=== PATIENT | female | born 1940 | race Caucasian/White ===

== ENCOUNTER → 2020-03-18 13:49 | Outpatient (CLI) | payer MEDICARE, OTHER, SELFPAY ==
[2020-03-18 15:56] LABS: COVID19 -Nasal RAPID Negative (Negative)
== END ==
PROVIDERS: PCP Family Medicine; Visit Provider Physician Assistant
DX: Z11.59 Encounter for screening for other viral diseases (principal)
CPT/HCPCS: 87635

== ENCOUNTER 2020-03-19 08:39 | Day surgery (SDC) | payer MEDICARE, OTHER, SELFPAY ==
[2020-03-19] MEDS: PROPARACAINE 0.5% OPHTH SOL 2 DROPS EYE-OP (09:35)
[2020-03-19] MEDS: CATARACT EYE COMPOUND (10 DROPS/SYRINGE) 3 DROPS EYE-OP (09:43)
[2020-03-19 09:46] VITALS: BP 158/77; PULSE 77; RESP 16; TEMP 37.2; O2SAT 99; BMI 43.4
--- NOTE | 2020-03-19 10:33 | PM.PREOP ---
Pre-operative Note Interval Note History & Physical reviewed/Exam performed by Physician: Yes Changes to H&P: No
--- NOTE | 2020-03-19 10:33 | PM.OP.1 ---
Operative Date/Time/Diagnoses Pre-op diagnosis: Nuclear cataract right eye Procedure & Clinicians Procedure: Cataract Surgery Same procedure as scheduled: Yes Surgeon: Erickson Lubin Anesthesia Type: MAC +/- and Sedation Operative Notes Procedure in detail: Patient brought to the operating suite. Tetracaine drops placed in the right eye. Marking instrument was used to nelson vertical and horizontal meridians. Patient was prepped and draped in sterile manner. Wire lid speculum was placed in the eye. Marking instrument was used to nelson 165 degree meridian. Betadine drops were placed on the eye. This was irrigated. Lidocaine jelly was placed on the eye. A paracentesis port was created with a side-port blade. 0.1 mL 1% preservative free lidocaine was injected into the anterior chamber. The anterior chamber was deepened with viscoelastic. 2.6 mm keratome was used to create a temporal clear corneal incision. Cystotome and Utrata forceps were used to create continuous tear capsulorrhexis. Balanced salt solution was used to hydro dissect the nucleus. The phacoemulsification handpiece was inserted and the nucleus was removed using the stop and chop technique. The irrigation aspiration handpiece was inserted and the remaining cortex was removed. Anterior chamber was deepened with viscoelastic. An Mcallister [id number] intraocular lens with a power of 19.0 was injected into the capsular bag. Irrigation aspiration handpiece was inserted and the remaining viscoelastic was removed. The lens was rotated to the 165 degree meridian. Incision was hydrated with balanced salt solution and found to be leak free with pressure with Weck-Kemi sponges. 0.1 mL Vigamox injected anterior chamber. 0.3 mL Kenalog 10 mg was injected subconjunctivally. Lid speculum was removed. The patient left the operating room in excellent condition. Complications: none Post-operative Condition: stable Disposition: same day surgery
[2020-03-19] MEDS: TRIAMCINOLONE 50 MG/5 ML VIAL INJ (10:56)
[2020-03-19] MEDS: PHENYLEPHRINE/LIDOCAINE VIAL (OR) 0.2 ML EYE-OP (10:56)
[2020-03-19] MEDS: BALANCED SALT IRRIG SOLN NO.2 500 ML, EPINEPHrine 1 MG IRR (10:57)
[2020-03-19] MEDS: LIDOCAINE JELLY 2% 5 ML 1 APPLIC TOP (10:57)
[2020-03-19] MEDS: TETRACAINE 0.5% OPHTH DROPS 4 ML 2 DROPS EYE-OP (10:57)
[2020-03-19] MEDS: MOXIFLOXACIN INJ 5 MG/ML VIAL EYE-OP (10:57)
[2020-03-19] MEDS: CHONDROIDTIN/SOD HYALURONATE 1.05 ML SYRINGE INTRAOCULA (10:58)
[2020-03-19 11:11] VITALS: BP 163/81; PULSE 65; RESP 14; TEMP 36.6; O2SAT 97
[2020-03-19 11:19] VITALS: BP 154/83; PULSE 64; RESP 16; O2SAT 97
--- NOTE | 2020-03-19 11:36 | SUR.PHASEII ---
1125 alert, oriented, head tremor. Stable and comfortable.
== END 2020-03-19 11:28 | disposition home or self-care (01) ==
PROVIDERS: PCP Family Medicine; Referring Provider Ophthalmology; Visit Provider Ophthalmology
PROC: (CPT 66984; principal; 2020-03-19 10:45)
DX: H25.11 Age-related nuclear cataract, right eye (principal); I48.91 Unspecified atrial fibrillation; I10 Essential (primary) hypertension; F32.9 Major depressive disorder, single episode, unspecified; F41.9 Anxiety disorder, unspecified; R25.1 Tremor, unspecified
CPT/HCPCS: 66984; J0171; J2250; J3010; J3301; V2787

== ENCOUNTER → 2020-03-30 11:03 | Outpatient (CLI) | payer MEDICARE, OTHER, SELFPAY ==
[2020-03-30 12:29] LABS: COVID19 -Nasal RAPID Negative (Negative)
== END ==
PROVIDERS: PCP Family Medicine; Visit Provider Nurse Practitioner
DX: Z11.59 Encounter for screening for other viral diseases (principal)
CPT/HCPCS: 87635

== ENCOUNTER 2020-04-02 09:04 | Day surgery (SDC) | payer MEDICARE, OTHER, SELFPAY ==
[2020-04-02] MEDS: PROPARACAINE 0.5% OPHTH SOL 2 DROPS EYE-OP (09:27)
[2020-04-02] MEDS: CATARACT EYE COMPOUND (10 DROPS/SYRINGE) 3 DROPS EYE-OP (09:30)
[2020-04-02 09:31] VITALS: BP 150/82; PULSE 64; RESP 16; TEMP 36.4; O2SAT 100
[2020-04-02 09:42] VITALS: BMI 42.9
--- NOTE | 2020-04-02 10:29 | PM.PREOP ---
Pre-operative Note Interval Note History & Physical reviewed/Exam performed by Physician: Yes Changes to H&P: No
--- NOTE | 2020-04-02 10:29 | PM.OP.1 ---
Operative Date/Time/Diagnoses Pre-op diagnosis: Nuclear Cataract Left eye Post-op diagnosis: same Procedure & Clinicians Same procedure as scheduled: Yes Surgeon: Erickson Lubin Anesthesia Type: MAC +/- and Sedation Operative Notes Procedure in detail: Patient brought to the operating suite. Tetracaine drops placed in the left eye. The marking instrument was used to nelson the vertical and horizontal meridians. Patient was prepped and draped in sterile manner. Wire lid speculum was placed in the eye. marking instrument was used to nelson the 15 degree meridian. Betadine drops were placed on the eye. This was irrigated. Lidocaine jelly was placed on the eye. A paracentesis port was created with a side-port blade. 0.1 mL 1% preservative free lidocaine was injected into the anterior chamber. The anterior chamber was deepened with viscoelastic. 2.6 mm keratome was used to create a temporal clear corneal incision. Cystotome and Utrata forceps were used to create continuous tear capsulorrhexis. Balanced salt solution was used to hydro dissect the nucleus. The phacoemulsification handpiece was inserted and the nucleus was removed using the stop and chop technique. The irrigation aspiration handpiece was inserted and the remaining cortex was removed. Anterior chamber was deepened with viscoelastic. An Mcallister [id number] intraocular lens with a power of 18.5 was injected into the capsular bag. Irrigation aspiration handpiece was inserted and the remaining viscoelastic was removed. The lens was rotated to the 15 degree meridian. Incision was hydrated with balanced salt solution and found to be leak free with pressure with Weck-Kemi sponges. 0.1 mL Vigamox injected anterior chamber. 0.3 mL Kenalog 10 mg was injected subconjunctivally. Lid speculum was removed. The patient left the operating room in excellent condition. Complications: none Post-operative Condition: stable Disposition: same day surgery
[2020-04-02] MEDS: CHONDROIDTIN/SOD HYALURONATE 1.05 ML SYRINGE INTRAOCULA (10:51)
[2020-04-02] MEDS: MOXIFLOXACIN INJ 5 MG/ML VIAL EYE-OP (10:51)
[2020-04-02] MEDS: TRIAMCINOLONE 50 MG/5 ML VIAL INJ (10:51)
[2020-04-02] MEDS: PHENYLEPHRINE/LIDOCAINE VIAL (OR) 0.2 ML EYE-OP (10:51)
[2020-04-02] MEDS: TETRACAINE 0.5% OPHTH DROPS 4 ML 2 DROPS EYE-OP (10:52)
[2020-04-02] MEDS: BALANCED SALT IRRIG SOLN NO.2 500 ML, EPINEPHrine 1 MG IRR (10:52)
[2020-04-02] MEDS: LIDOCAINE JELLY 2% 5 ML 1 APPLIC TOP (10:52)
[2020-04-02 11:05] VITALS: BP 154/80; PULSE 61; RESP 17; TEMP 36.1; O2SAT 97
== END 2020-04-02 11:20 | disposition home or self-care (01) ==
PROVIDERS: PCP Family Medicine; Referring Provider Ophthalmology; Visit Provider Ophthalmology
PROC: (CPT 66984; principal; 2020-04-02 10:45)
DX: H25.12 Age-related nuclear cataract, left eye (principal); I48.91 Unspecified atrial fibrillation; I10 Essential (primary) hypertension; F32.9 Major depressive disorder, single episode, unspecified; F41.9 Anxiety disorder, unspecified
CPT/HCPCS: 66984; J0171; J2250; J3010; J3301; V2787

== ENCOUNTER → 2021-03-11 08:27 | Outpatient (CLI) | payer MEDICARE, OTHER, SELFPAY ==
[2021-03-11 18:44] LABS: Add Manual Diff / Slide Review NO; Basophils Absolute Auto 100 /uL (0-100); Basophils Percent Auto 0.9 % (0-2); Eosinophils Absolute Auto 300 /uL (0-450); Eosinophils Percent Auto 4.3 % (2-4); Hemoglobin 14.2 g/dL (12.0-16.0); Lymphocytes Absolute Auto 1900 /uL (1100-4500); Lymphocytes Percent Auto 24.7 % (25-40); Mean Corpuscular HGB Conc 34.7 % (30-36); Mean Corpuscular Hemoglobin 29.3 PG (26-34); Mean Corpuscular Volume 84.2 fL (80-100); Monocytes Absolute Auto 900 /uL (0-900); Monocytes Percent Auto 11.6 % (3-14); Neutrophils Absolute Auto 4400 /uL (1500-7000); Neutrophils Percent Auto 58.5 % (50-75); Platelet Count 322 X10^3/uL (150-400); Red Blood Cell Count 4.87 X10^6/uL (4.0-5.2); Red Cell Distribution Width 13.1 % (11.6-14.8); White Blood Cell Count 7.6 X10^3/uL (4.5-11.0)
[2021-03-11 18:50] LABS: Alanine Aminotransferase 23 IU/L (<35); Albumin 3.7 g/dL (3.5-5.0); Albumin Globulin Ratio 1.4 (1.0-2.8); Alkaline Phosphatase 70 U/L (38-126); Aspartate Aminotransferase 30 IU/L (14-36); BUN Creatinine Ratio 20.9 (6-22); Bilirubin Total 0.6 mg/dL (0.2-1.3); Blood Urea Nitrogen 19 mg/dL (7-17); Calcium 10.2 mg/dL (8.4-10.2); Chloride 96 mmol/L (98-107); Estimated Glomerular Filt Rate 59.6 mL/min (>60); Globulin 2.7 g/dL (1.7-4.1); Glucose 107 mg/dL (80-110); HEMOLYSIS < 15 (0-50); Sodium 139 mmol/L (137-145); Total Protein 6.4 g/dL (6.3-8.2)
[2021-03-11 18:53] LABS: Cholesterol 179 mg/dL (140-199); HDL Cholesterol 49 mg/dL (40-60); LDL Cholesterol Calculated 109 mg/dL (<100); Triglycerides 106 mg/dL (35-150)
[2021-03-11 19:02] LABS: Carbon Dioxide 39 mmol/L (22-32)
== END ==
PROVIDERS: PCP Physician Assistant; Referring Provider Physician Assistant; Visit Provider Physician Assistant
DX: I10 Essential (primary) hypertension (principal); E78.00 Pure hypercholesterolemia, unspecified; Z87.898 Personal history of other specified conditions
CPT/HCPCS: 80053; 80061; 85025

== ENCOUNTER → 2021-04-02 08:22 | Outpatient (CLI) | payer MEDICARE, OTHER, SELFPAY ==
[2021-04-02 19:33] LABS: Alanine Aminotransferase 23 IU/L (<35); Albumin 3.7 g/dL (3.5-5.0); Albumin Globulin Ratio 1.3 (1.0-2.8); Alkaline Phosphatase 65 U/L (38-126); Aspartate Aminotransferase 30 IU/L (14-36); BUN Creatinine Ratio 18.7 (6-22); Bilirubin Total 0.6 mg/dL (0.2-1.3); Blood Urea Nitrogen 17 mg/dL (7-17); Calcium 10.5 mg/dL (8.4-10.2); Chloride 96 mmol/L (98-107); Estimated Glomerular Filt Rate 59.6 mL/min (>60); Globulin 2.8 g/dL (1.7-4.1); Glucose 108 mg/dL (80-110); HEMOLYSIS < 15 (0-50); Potassium 3.2 mmol/L (3.4-5.1); Sodium 141 mmol/L (137-145); Total Protein 6.5 g/dL (6.3-8.2)
[2021-04-02 19:39] LABS: Carbon Dioxide 37 mmol/L (22-32)
== END ==
PROVIDERS: PCP Physician Assistant; Visit Provider Physician Assistant
DX: E87.8 Other disorders of electrolyte and fluid balance, not elsewhere classified (principal)
CPT/HCPCS: 80053

== ENCOUNTER → 2021-07-23 12:38 | Outpatient (CLI) | payer MEDICARE, OTHER, SELFPAY ==
[2021-07-24 18:50] LABS: Add Manual Diff / Slide Review NO; Basophils Absolute Auto 100 /uL (0-100); Basophils Percent Auto 1.3 % (0-2); Eosinophils Absolute Auto 400 /uL (0-450); Eosinophils Percent Auto 5.3 % (2-4); Hematocrit 42.5 % (36-46); Hemoglobin 14.4 g/dL (12.0-16.0); Lymphocytes Absolute Auto 1600 /uL (1100-4500); Lymphocytes Percent Auto 23.8 % (25-40); Mean Corpuscular HGB Conc 33.8 % (30-36); Mean Corpuscular Hemoglobin 28.6 PG (26-34); Mean Corpuscular Volume 84.7 fL (80-100); Monocytes Absolute Auto 700 /uL (0-900); Monocytes Percent Auto 10.5 % (3-14); Neutrophils Absolute Auto 4000 /uL (1500-7000); Neutrophils Percent Auto 59.1 % (50-75); Platelet Count 319 X10^3/uL (150-400); Red Blood Cell Count 5.03 X10^6/uL (4.0-5.2); Red Cell Distribution Width 13.9 % (11.6-14.8); White Blood Cell Count 6.8 X10^3/uL (4.5-11.0)
[2021-07-24 19:02] LABS: Alanine Aminotransferase 28 IU/L (<35); Albumin 3.9 g/dL (3.5-5.0); Albumin Globulin Ratio 1.3 (1.0-2.8); Alkaline Phosphatase 43 U/L (38-126); Aspartate Aminotransferase 46 IU/L (14-36); BUN Creatinine Ratio 25.3 (6-22); Bilirubin Total 0.7 mg/dL (0.2-1.3); Blood Urea Nitrogen 22 mg/dL (7-17); Calcium 9.6 mg/dL (8.4-10.2); Carbon Dioxide 32 mmol/L (22-32); Chloride 99 mmol/L (98-107); Estimated Glomerular Filt Rate > 60.0 mL/min (>60); Globulin 2.9 g/dL (1.7-4.1); Glucose 121 mg/dL (80-110); HEMOLYSIS 107 (0-50); Sodium 139 mmol/L (137-145); Total Protein 6.8 g/dL (6.3-8.2)
[2021-07-24 19:03] LABS: Potassium 3.8 mmol/L (3.4-5.1)
== END ==
PROVIDERS: PCP Physician Assistant; Visit Provider Physician Assistant
DX: Z79.899 Other long term (current) drug therapy (principal); E87.8 Other disorders of electrolyte and fluid balance, not elsewhere classified; Z87.898 Personal history of other specified conditions
CPT/HCPCS: 80053; 85025

== ENCOUNTER → 2022-02-03 11:39 | Outpatient (CLI) | payer MEDICARE, OTHER, SELFPAY ==
[2022-02-03 20:25] LABS: Add Manual Diff / Slide Review NO; Basophils Absolute Auto 100 /uL (0-100); Basophils Percent Auto 0.9 % (0-2); Eosinophils Absolute Auto 200 /uL (0-450); Hematocrit 42.2 % (36-46); Hemoglobin 14.5 g/dL (12.0-16.0); Lymphocytes Absolute Auto 1400 /uL (1100-4500); Lymphocytes Percent Auto 22.6 % (25-40); Mean Corpuscular HGB Conc 34.3 % (30-36); Mean Corpuscular Hemoglobin 28.9 PG (26-34); Mean Corpuscular Volume 84.4 fL (80-100); Monocytes Absolute Auto 700 /uL (0-900); Monocytes Percent Auto 11.5 % (3-14); Neutrophils Absolute Auto 3800 /uL (1500-7000); Platelet Count 332 X10^3/uL (150-400); Red Cell Distribution Width 13.4 % (11.6-14.8); White Blood Cell Count 6.3 X10^3/uL (4.5-11.0)
[2022-02-03 21:15] LABS: Vitamin D 25 Hydroxy (D3) 33.1 ng/mL (30.0-100.0)
[2022-02-03 21:31] LABS: TSH w/ Reflex to FT4 1.45 uIU/mL (0.47-4.68)
[2022-02-04 02:16] LABS: HEMOLYSIS < 15 (0-50)
[2022-02-04 02:22] LABS: Alanine Aminotransferase 22 IU/L (<35); Albumin 3.7 g/dL (3.5-5.0); Albumin Globulin Ratio 1.3 (1.0-2.8); Alkaline Phosphatase 70 U/L (38-126); Aspartate Aminotransferase 29 IU/L (14-36); Bilirubin Total 0.6 mg/dL (0.2-1.3); Blood Urea Nitrogen 19 mg/dL (7-17); Calcium 9.9 mg/dL (8.4-10.2); Carbon Dioxide 37 mmol/L (22-32); Chloride 95 mmol/L (98-107); Estimated Glomerular Filt Rate > 60 mL/min (>60); Globulin 2.9 g/dL (1.7-4.1); Glucose 104 mg/dL (80-110); Magnesium 1.8 mg/dL (1.6-2.3); Potassium 3.5 mmol/L (3.4-5.1); Sodium 139 mmol/L (137-145); Total Protein 6.6 g/dL (6.3-8.2)
[2022-02-04 03:27] LABS: Vitamin B12 683 pg/mL (239-931)
== END ==
PROVIDERS: PCP Physician Assistant; Visit Provider Physician Assistant
DX: I48.91 Unspecified atrial fibrillation (principal); Z79.899 Other long term (current) drug therapy; I10 Essential (primary) hypertension; R74.8 Abnormal levels of other serum enzymes; R25.1 Tremor, unspecified; R26.81 Unsteadiness on feet; R41.3 Other amnesia; F32.9 Major depressive disorder, single episode, unspecified; N39.0 Urinary tract infection, site not specified
CPT/HCPCS: 80053; 82306; 82607; 83735; 84443; 85025; 87086

== ENCOUNTER → 2022-05-26 07:11 | Outpatient (CLI) | payer MEDICARE, OTHER, SELFPAY ==
[2022-05-26 20:33] LABS: COVID19 - ORCAS (NP or Nasal) Negative (Negative)
== END ==
PROVIDERS: PCP Physician Assistant; Visit Provider Physician Assistant
DX: Z01.812 Encounter for preprocedural laboratory examination (principal); Z20.822 Contact with and (suspected) exposure to COVID-19
CPT/HCPCS: C9803; U0003

== ENCOUNTER 2022-05-28 09:56 | Day surgery (SDC) | payer MEDICARE, OTHER, SELFPAY ==
--- NOTE | 2022-05-28 | PATH_ITS ---
[facility] Accession Number: [id number] No. of containers..02 Tissue . 01 Material submitted: . PART A: colon - SIGMOID POLYP PART B: colon - TRANSVERSE POLYP . 01 Diagnosis: A. Sigmoid Colon, Polyp, Biopsy: Tubular adenoma. . B. Transverse Colon, Polyp, Biopsy: Tubular adenoma. MRV 06/03/2022 1323 Local . 01 Electronically signed: . Tania Serrano MD, Pathologist NPI- [id number] . 01 Gross description: . Part A: SIGMOID POLYP: Received in formalin is 1 fragment(s) of llamas, soft tissue measuring 0.5 x 0.3 x 0.1 cm submitted entirely in 1 cassette(s) Part B: TRANSVERSE POLYP: Received in formalin is 1 fragment(s) of llamas, soft tissue measuring 0.2 x 0.1 x 0.1 cm submitted entirely in 1 cassette(s) /CPE 05/29/2022 1011 Local . 01 Pathologist provided ICD-10: D12.3, D12.5 . 01 CPT . 923643, 208461 Specimen Comment: A courtesy copy of this report has been sent to [phone] Performed at: 01 [facility] [address] [place] [address] [address] [facility], [place], [place] [id number] MD Ac Bhatt MD Phone: [phone]
[2022-05-28 10:30] VITALS: BP 142/81; PULSE 128; RESP 18; TEMP 36.8; O2SAT 99; BMI 42.9
[2022-05-28] MEDS: LACTATED RINGERS 1,000 ML 84 ML IV (10:42)
--- NOTE | 2022-05-28 12:07 | P.HP_ITS ---
History of Present Illness History of Present Illness Date Patient Seen: 05/28/22 Time Patient Seen: 12:07 Chief complaint: [facility] [place]: Nandini had a positive Cologuard test over a year ago. She was scheduled for colonoscopy last year but the road got washed out and she could not make it so she is here now. Patient History Medical History (Updated 02/03/22 @ 17:55 by Tierney Houser PA-C) Afib Anxiety Depression Disorder of knee Herpes zoster History of epistaxis History of falling HTN (hypertension) Recurrent UTI Tremor Surgical History Cataract extraction status, left eye History of hysterectomy History of nephrectomy History of tonsillectomy History of total knee arthroplasty Family & Social History Social History: household members family Tobacco & Substance use: Smoking Status Never smoker alcohol intake former alcohol intake frequency holiday/special occasion Substance Use Type does not use Meds Home Medications and Allergies Home Medications Medication Instructions Recorded Confirmed Type B.ANI/L.ACI/L.DUC/L.PLAN/L.ANNETTE 1 cap PO QDAY ##0 10/31/20 02/03/22 History (Probiotic Formula Capsule) CA PANTOTHENATE/FOLIC ACID/VIT 2 tab PO QDAY ##0 10/31/20 02/03/22 History (MULTIVITAMIN) [CALCIUM PLUS D ] 1,200 mg PO QDAY ##0 10/31/20 02/03/22 History aspirin 81 mg tablet,delayed 81 mg PO QDAY ##0 10/31/20 05/28/22 History release loratadine 10 mg chewable tablet 10 mg PO DAILY #30 tabs 10/20/21 05/28/22 Rx (Claritin) atenolol 25 mg tablet 25 mg PO BID #60 tabs 01/28/22 05/28/22 Rx chlorthalidone 25 mg tablet See Rx Instructions .Route 02/23/22 05/28/22 Rx .COMPLEX #180 tabs diltiazem HCl 240 mg 240 mg PO QAM #90 caps 03/23/22 05/28/22 Rx capsule,extended release 24 hr, controlled venlafaxine 37.5 mg tablet 37.5 mg PO DAILY #90 tabs 04/01/22 05/28/22 Rx acyclovir 400 mg tablet See Rx Instructions .Route 04/20/22 05/28/22 Rx .COMPLEX #180 tabs sodium sul 1.479 gram-potas ch See Rx Instructions PO PER PKG DIR 05/13/22 Rx 0.188 gram-magnes sul 0.225 gram #24 tabs tablet (Sutab) alprazolam 0.5 mg tablet 0.25 mg PO BEDTIME PRN anxiety #15 05/18/22 05/28/22 Rx tabs Allergies Allergy/AdvReac Type Severity Reaction Status Date / Time No Known Drug Allergies Allergy Verified 02/03/22 11:05 Exam Vital Signs (past 8 hours): - 05/28/22 10:30 Temperature 98.3 F Pulse Rate 128 H Respiratory Rate 18 Blood Pressure 142/81 H Pulse Oximetry 99 Oxygen Delivery Method Room Air Oxygen Delivery Method Room Air Resp Effort & Inspection: normal respiratory effort Assessment & Plan Assessment and plan (1) Positive colorectal cancer screening using Cologuard test: Status: Acute Plan We reviewed the risks and benefits of colonoscopy and she would like to proceed. Time Spent With Patient Critical Care time: I spent a total of [] minutes of critical care time on this patient's care today; this time is exclusive of procedural time.
--- NOTE | 2022-05-28 12:39 | PM.OP.COLON ---
Operative Date/Time/Diagnoses Date of procedure: 05/28/22 Time of procedure: 12:39 Pre-op diagnosis: Positive Cologuard test Post-op diagnosis: same Procedure & Clinicians Study performed: Colonoscopy Same procedure as scheduled: Yes Surgeon: Iván Rojas Procedure Notes Procedure in detail: Surgeon: Iván Rojas MD Anesthesia: Dr. Fenton Procedure: The patient was brought to the endoscopy suite, placed in left lateral decubitus position. The patient was connected to monitoring devices. A time-out was performed. Sedation was administered. Once the patient was adequately sedated, a digital rectal exam was performed and was normal. The scope was then inserted and advanced to the cecum where the appendiceal orifice was identified and photographed. The scope was then slowly withdrawn over greater than 6 minutes. The mucosa was thoroughly inspected. There was a 5 mm polyp in the transverse colon removed with a cold snare. There was a 6 mm polyp in the sigmoid colon removed with a cold snare. The scope was retroflexed in the rectum. No abnormalities were noted. The scope was straightened and removed. The patient was awakened and brought to recovery. Scope withdrawal time: 7 minutes Sedation time: 15 minutes EBL: 5 mL Findings: 6 mm polyp in the sigmoid colon and 5 mm polyp in the transverse colon Post-procedure Disposition: PACU
[2022-05-28 12:41] VITALS: BP 143/95; BP 145/75; PULSE 80; PULSE 85; RESP 16; RESP 19; TEMP 36.2; O2SAT 100; O2SAT 99
[2022-05-28 12:53] VITALS: BP 139/90; PULSE 78; RESP 18; O2SAT 96
== END 2022-05-28 13:39 | disposition home or self-care (01) ==
PROVIDERS: PCP Physician Assistant; Referring Provider Surgery; Visit Provider Surgery
PROC: 0DJD8ZZ Inspection of Lower Intestinal Tract, Via Natural or Artificial Opening Endoscopic (ICD-10-PCS; CPT 45378; principal; 2022-05-28 10:45)
DX: Z12.11 Encounter for screening for malignant neoplasm of colon (principal); R19.5 Other fecal abnormalities; I48.91 Unspecified atrial fibrillation; I10 Essential (primary) hypertension; D12.5 Benign neoplasm of sigmoid colon; D12.3 Benign neoplasm of transverse colon
CPT/HCPCS: 45385; 93005; J2250; J2704; J3010

== ENCOUNTER → 2022-08-31 13:01 | Outpatient (CLI) | payer MEDICARE, OTHER, SELFPAY ==
[2022-08-31 19:37] LABS: HEMOLYSIS < 15 (0-50)
[2022-08-31 19:44] LABS: Alanine Aminotransferase 26 IU/L (<35); Albumin 3.5 g/dL (3.5-5.0); Albumin Globulin Ratio 1.3 (1.0-2.8); Alkaline Phosphatase 72 U/L (38-126); Aspartate Aminotransferase 30 IU/L (14-36); BUN Creatinine Ratio 17.8 (6-22); Bilirubin Total 0.5 mg/dL (0.2-1.3); Blood Urea Nitrogen 19 mg/dL (7-17); Calcium 9.8 mg/dL (8.4-10.2); Chloride 93 mmol/L (98-107); Estimated Glomerular Filt Rate 52 mL/min (>60); Globulin 2.8 g/dL (1.7-4.1); Glucose 125 mg/dL (80-110); Sodium 139 mmol/L (137-145); Total Protein 6.3 g/dL (6.3-8.2)
[2022-08-31 20:24] LABS: Carbon Dioxide 37 mmol/L (22-32)
[2022-09-01 16:27] LABS: Folate > 20.0 ng/mL (2.76-20.0); Vitamin B12 830 pg/mL (239-931)
[2022-09-03 09:05] LABS: RPR Screen Non Reactive (Non Reactive)
== END ==
PROVIDERS: PCP Physician Assistant; Visit Provider Family Medicine
DX: R41.3 Other amnesia (principal)
CPT/HCPCS: 80053; 82607; 82746; 86592

== ENCOUNTER → 2022-09-22 14:32 | Outpatient (CLI) | payer MEDICARE, OTHER, SELFPAY ==
[2022-09-22 20:37] LABS: BUN Creatinine Ratio 17.4 (6-22); Blood Urea Nitrogen 19 mg/dL (7-17); Calcium 10.1 mg/dL (8.4-10.2); Chloride 96 mmol/L (98-107); Estimated Glomerular Filt Rate 51 mL/min (>60); Glucose 85 mg/dL (80-110); HEMOLYSIS < 15 (0-50); Potassium 3.8 mmol/L (3.4-5.1); Sodium 138 mmol/L (137-145)
[2022-09-22 20:47] LABS: Carbon Dioxide 37 mmol/L (22-32)
== END ==
PROVIDERS: PCP Physician Assistant; Visit Provider Family Medicine
DX: E87.6 Hypokalemia (principal); R94.4 Abnormal results of kidney function studies
CPT/HCPCS: 80048

== ENCOUNTER 2023-10-14 21:44 | Emergency (ER) | payer MEDICARE, OTHER, SELFPAY ==
[2023-10-14 21:48] VITALS: BP 180/82; PULSE 65; RESP 18; TEMP 37.1; O2SAT 97; BMI 40.8
--- NOTE | 2023-10-14 21:56 | DI.CT.S_ITS ---
PROCEDURE: CT HEAD/BRAIN WO CON INDICATIONS: Unwitnessed fall with head injury TECHNIQUE: Noncontrast 4.5 mm thick angled axial sections acquired from the foramen magnum to the vertex, with coronal and sagittal reformats. For radiation dose reduction, the following was used: automated exposure control, adjustment of mA and/or kV according to patient size. COMPARISON: None. FINDINGS: Image quality: Diagnostic. CSF spaces: Basal cisterns are patent. No extra-axial fluid collections. The ventricles are symmetric in size and shape. Brain: No intracranial bleeds or masses. There is cerebral volume loss for age, with resultant ventricular and sulcal prominence. There are periventricular and deep white matter chronic small vessel ischemic changes. There is intracranial internal carotid artery atherosclerosis. Skull and face: Calvarium and visualized facial bones appear intact, without suspicious lesions. Left parietal scalp swelling/hematoma with possible small laceration.. Sinuses: Visualized sinuses and mastoids are clear. IMPRESSION: No acute intracranial pathology. Left parietal scalp swelling/small hematoma with possible small laceration. No associated calvarial abnormality. Approved by: Nickie Marsh M.D.,Ph.D. on 10/15/2023 at 0:34
--- NOTE | 2023-10-14 21:56 | DI.CT.S_ITS ---
PROCEDURE: CT CERVICAL SPINE WO CON INDICATIONS: Unwitnessed fall without injury TECHNIQUE: Noncontrast 3 mm thick sections acquired from the skull base to the T4 level. Sagittal and coronal reformats were then constructed. For radiation dose reduction, the following was used: automated exposure control, adjustment of mA and/or kV according to patient size. COMPARISON: None. FINDINGS: Image quality: Diagnostic. Bones: No fractures or dislocations. Visualized superior ribs are intact. Soft tissues: Prevertebral soft tissues are normal in thickness. No paravertebral hematomas. No apical pneumothoraces. Heterogeneous appearance of the right thyroid gland with probable individual measuring up to 2.0 cm. IMPRESSION: No displaced fracture or traumatic subluxation. Multiple right thyroid gland nodules measuring up to 2.0 cm. Recommend further evaluation with nonemergent thyroid ultrasound. Approved by: Nickie Marsh M.D.,Ph.D. on 10/15/2023 at 0:37
--- NOTE | 2023-10-14 21:57 | EKG_ITS ---
[address] [address] Test Date: 2023-10-14 Pat Name: Jeny Spain Department: Room: Gender: Female Software Sales Executive: CARLOS Leach : 1940 Requested By: Order Number: [id number] Reading MD: Miguel Stahl MD Measurements Intervals [place] Rate: 57 P: 21 NE: 174 QRS: 44 QRSD: 112 T: 12 QT: 446 QTc: 434 Interpretive Statements Sinus bradycardia with sinus arrhythmia Moderate voltage criteria for LVH, may be normal variant ( Sokolow-Cochran , [place] product ) Electronically Signed On 10-15-2023 7:32:43 PDT by Miguel Stahl MD
--- NOTE | 2023-10-14 22:08 | DI.RAD.S_ITS ---
PROCEDURE: XR ELBOW LT MIN 3V INDICATIONS: fall/pain TECHNIQUE: 3 views of the elbow were acquired. COMPARISON: [facility] ([place]), CR, XR ELBOW LT MIN 3V, 04/07/2023, 9:26. FINDINGS: Bones: No fractures or dislocations. No suspicious bony lesions. Soft tissues: No elbow joint effusion. No suspicious soft tissue calcifications. IMPRESSION: No acute bony abnormality or significant joint effusion. If symptoms persist with conservative management, consider repeat radiographs in 5-7 days or cross-sectional imaging such as CT or MRI. Approved by: Nickie Marsh M.D.,Ph.D. on 10/15/2023 at 0:39
[2023-10-14 22:24] LABS: Add Manual Diff / Slide Review NO; Basophils Absolute Auto 100 /uL (0-100); Basophils Percent Auto 0.8 % (0-2); Eosinophils Absolute Auto 200 /uL (0-450); Eosinophils Percent Auto 2.3 % (2-4); Lymphocytes Absolute Auto 2000 /uL (1100-4500); Lymphocytes Percent Auto 20.5 % (25-40); Mean Corpuscular Hemoglobin 28.7 PG (26-34); Mean Corpuscular Volume 84.4 fL (80-100); Monocytes Absolute Auto 1100 /uL (0-900); Monocytes Percent Auto 11.5 % (3-14); Neutrophils Absolute Auto 6300 /uL (1500-7000); Neutrophils Percent Auto 64.9 % (50-75); Platelet Count 291 X10^3/uL (150-400); Red Blood Cell Count 4.86 X10^6/uL (4.0-5.2); Red Cell Distribution Width 13.1 % (11.6-14.8); White Blood Cell Count 9.7 X10^3/uL (4.5-11.0)
[2023-10-14 22:42] LABS: Alanine Aminotransferase 19 IU/L (<35); Albumin 3.7 g/dL (3.5-5.0); Albumin Globulin Ratio 1.3 (1.0-2.8); Alkaline Phosphatase 64 U/L (38-126); Aspartate Aminotransferase 30 IU/L (14-36); BUN Creatinine Ratio 22.4 (6-22); Bilirubin Total 0.5 mg/dL (0.2-1.3); Blood Urea Nitrogen 24 mg/dL (7-17); Calcium 9.9 mg/dL (8.4-10.2); Carbon Dioxide 39 mmol/L (22-32); Chloride 101 mmol/L (98-107); Estimated Glomerular Filt Rate 52 mL/min (>60); Globulin 2.8 g/dL (1.7-4.1); Glucose 115 mg/dL (80-110); HEMOLYSIS < 15 (0-50); Lipase 316 U/L (23-300); Sodium 138 mmol/L (137-145); Total Protein 6.5 g/dL (6.3-8.2)
[2023-10-14 22:49] VITALS: PULSE 58; O2SAT 99
[2023-10-14 22:51] VITALS: BP 152/67; PULSE 56; O2SAT 99
[2023-10-14 23:00] VITALS: BP 145/71; PULSE 57; O2SAT 99
[2023-10-14 23:30] VITALS: BP 132/61; PULSE 55; O2SAT 97
[2023-10-15] VITALS: PULSE 56; O2SAT 98
[2023-10-15 00:01] VITALS: BP 167/75; PULSE 57; O2SAT 98
[2023-10-15 00:30] VITALS: PULSE 56; O2SAT 99
--- NOTE | 2023-10-15 00:49 | ED.FALL ---
HPI - Fall General Chief Complaint: Fall Stated Complaint: fell/memory loss Time Seen by Provider: 10/14/23 21:56 Source: patient and family Mode of arrival: Ambulatory History of Present Illness HPI Narrative: Patient is an 83-year-old female here for evaluation of injuries that she sustained after falling at home today. Patient states she does not remember falling but other family members stated that she did fall. She was seen earlier by paramedics. Was having bleeding from her scalp. She also has a laceration to her left elbow. She reports no other injuries from the event. She does not remember the fall. Does not remember any prodromal symptoms. She currently has no specific pain. Related Data Home Medications Medication Instructions Recorded Confirmed B.ANI/L.ACI/L.DUC/L.PLAN/L.ANNETTE 1 cap PO QDAY ##0 10/31/20 04/07/23 (Probiotic Formula Capsule) CA PANTOTHENATE/FOLIC ACID/VIT 2 tab PO QDAY ##0 10/31/20 04/07/23 (MULTIVITAMIN) [CALCIUM PLUS D ] 1,200 mg PO QDAY ##0 10/31/20 04/07/23 aspirin 81 mg tablet,delayed 81 mg PO QDAY ##0 10/31/20 04/07/23 release Previous Rx's Medication Instructions Recorded loratadine 10 mg chewable tablet 10 mg PO DAILY #30 tabs 10/20/21 (Claritin) chlorthalidone 25 mg tablet 50 mg (2 x 25 mg) PO QAM #180 tabs 04/28/23 venlafaxine 37.5 mg tablet See Rx Instructions .Route 04/28/23 .COMPLEX #90 tabs acyclovir 400 mg tablet 400 mg PO BID #180 tabs 06/08/23 atenolol 25 mg tablet 25 mg PO BID #60 tabs 07/11/23 potassium chloride 10 mEq 10 meq PO .COMPLEX #30 caps 09/13/23 capsule,extended release diltiazem HCl 240 mg 240 mg PO QAM #90 caps 09/28/23 capsule,extended release 24 hr, controlled Allergies Allergy/AdvReac Type Severity Reaction Status Date / Time No Known Drug Allergies Allergy Verified 04/07/23 08:36 Review of Systems Review of Systems ROS Unobtainable: All systems reviewed & are unremarkable except as noted in HPI and below Patient History Medical History History of epistaxis History of falling Anxiety Recurrent UTI Tremor Disorder of knee Herpes zoster Depression HTN (hypertension) Afib Surgical History History of nephrectomy History of hysterectomy History of tonsillectomy Cataract extraction status, left eye History of total knee arthroplasty Social History household members: family Smoking Status: Never smoker alcohol intake: former Smoking Status: Never smoker alcohol intake frequency: holidays/special occasions only Substance Use Type: does not use Exam Initial Vital Signs Initial Vital Signs: Vital Signs Temperature 98.7 F 10/14/23 21:48 Pulse Rate 65 10/14/23 21:48 Respiratory Rate 18 10/14/23 21:48 Blood Pressure 180/82 H 10/14/23 21:48 Pulse Oximetry 97 10/14/23 21:48 Oxygen Delivery Method Room Air 10/14/23 21:48 HENPA Head: laceration Face and sinus: normal facial exam Mouth: oral mucosae normal Resp Effort & Inspection: normal respiratory effort Auscultation: clear to auscultation bilaterally Cardio Rate: regular rate Rhythm: regular rhythm GI Inspection: non-distended Skin Other: Patient with an irregular laceration with 4 cm total length to the left side of the scalp. No active bleeding. Patient has a 2nd 1 cm laceration of the left elbow. Extrem Other: Pelvis stable. Full range of motion of the left elbow. Lower extremities unremarkable. Procedures Laceration Repair Laceration 1: Site: scalp Side (If applicable): left Size (cm): 4 Description: stellate Depth: simple, single layer Local Anesthetic: lidocaine 1% Amount of anesthesia used (mL): 3 Pre-repair: wound explored and deep structures intact Skin layer closed with: mahsa Laceration 2: Site: upper extremity Side (If applicable): left Size (cm): 1 Description: linear Depth: simple, single layer Local Anesthetic: lidocaine 1% Amount of anesthesia used (mL): 2 Pre-repair: wound explored, irrigated extensively and deep structures intact Skin layer closed with: nylon Skin layer suture size: 4-0 Number of sutures: 2 Technique: simple, interrupted Course Orders Ordered: ED Orders 10/14/23 21:56 CT cervical spine wo con Stat CT head/brain wo con Stat 10/14/23 21:57 EKG-12 Lead Stat 10/14/23 22:08 XR elbow LT min 3V Stat 10/14/23 22:15 Complete Blood Count AUTO DIFF Stat Comprehensive Metabolic Panel Stat Lipase Stat Discontinued Medications Bacitracin (Bacitracin Oint 0.9 Gm Pckt) 1 applic TOP NOW ONE Stop: 10/15/23 01:08 Last Admin: 10/15/23 01:14 Dose: 1 applic Vital Signs Vital signs: Vital Signs - 8 hr 10/14/23 21:48 10/14/23 22:49 10/14/23 22:51 Temperature 98.7 F Pulse Rate 65 58 L Respiratory Rate 18 Blood Pressure 180/82 H 152/67 H Pulse Oximetry 97 99 Oxygen Delivery Method Room Air 10/14/23 22:51 10/14/23 23:00 10/14/23 23:00 Temperature Pulse Rate 56 L 57 L Respiratory Rate Blood Pressure 145/71 H Pulse Oximetry 99 99 Oxygen Delivery Method 10/14/23 23:30 10/14/23 23:30 10/15/23 00:00 Temperature Pulse Rate 55 L 56 L Respiratory Rate Blood Pressure 132/61 Pulse Oximetry 97 98 Oxygen Delivery Method 10/15/23 00:01 10/15/23 00:01 10/15/23 00:30 Temperature Pulse Rate 57 L 56 L Respiratory Rate Blood Pressure 167/75 H Pulse Oximetry 98 99 Oxygen Delivery Method 10/15/23 01:00 Temperature Pulse Rate 70 Respiratory Rate Blood Pressure Pulse Oximetry 99 Oxygen Delivery Method MDM - Fall Lab Data Attestation: I reviewed the patient's lab results. 10/14/23 22:15 10/14/23 22:15 Labs: Lab Results 10/14/23 Range/Units 22:15 WBC 9.7 (4.5-11.0) X10^3/uL RBC 4.86 (4.0-5.2) X10^6/uL Hgb 14.0 (12.0-16.0) g/dL Hct 41.0 (36-46) % MCV 84.4 (80-100) fL MCH 28.7 (26-34) PG MCHC 34.0 (30-36) % RDW 13.1 (11.6-14.8) % Plt Count 291 (150-400) X10^3/uL Neut % (Auto) 64.9 (50-75) % Lymph % (Auto) 20.5 L (25-40) % [place] % (Auto) 11.5 (3-14) % Eos % (Auto) 2.3 (2-4) % Baso % (Auto) 0.8 (0-2) % Neut # (Auto) 6300 (3813-8060) /uL Lymph # (Auto) 2000 (7436-3607) /uL [place] # (Auto) 1100 H (0-900) /uL Eos # (Auto) 200 (0-450) /uL Baso # (Auto) 100 (0-100) /uL Sodium 138 (137-145) mmol/L Potassium 3.0 L (3.4-5.1) mmol/L Chloride 101 (98-107) mmol/L Carbon Dioxide 39 H (22-32) mmol/L BUN 24 H (7-17) mg/dL Creatinine 1.07 H (0.52-1.04) mg/dL Estimated GFR 52 L (>60) mL/min BUN/Creatinine Ratio 22.4 H (6-22) Glucose 115 H (80-110) mg/dL Calcium 9.9 (8.4-10.2) mg/dL Total Bilirubin 0.5 (0.2-1.3) mg/dL AST 30 (14-36) IU/L ALT 19 (<35) IU/L Alkaline Phosphatase 64 (38-126) U/L Total Protein 6.5 (6.3-8.2) g/dL Albumin 3.7 (3.5-5.0) g/dL Globulin 2.8 (1.7-4.1) g/dL Albumin/Globulin Ratio 1.3 (1.0-2.8) Lipase 316 H (23-300) U/L Imaging Data CT scan - head: Radiologist's Impression: PROCEDURE: CT HEAD/BRAIN WO CON INDICATIONS: Unwitnessed fall with head injury TECHNIQUE: Noncontrast 4.5 mm thick angled axial sections acquired from the foramen magnum to the vertex, with coronal and sagittal reformats. For radiation dose reduction, the following was used: automated exposure control, adjustment of mA and/or kV according to patient size. COMPARISON: None. FINDINGS: Image quality: Diagnostic. CSF spaces: Basal cisterns are patent. No extra-axial fluid collections. The ventricles are symmetric in size and shape. Brain: No intracranial bleeds or masses. There is cerebral volume loss for age, with resultant ventricular and sulcal prominence. There are periventricular and deep white matter chronic small vessel ischemic changes. There is intracranial internal carotid artery atherosclerosis. Skull and face: Calvarium and visualized facial bones appear intact, without suspicious lesions. Left parietal scalp swelling/hematoma with possible small laceration.. Sinuses: Visualized sinuses and mastoids are clear. IMPRESSION: No acute intracranial pathology. Left parietal scalp swelling/small hematoma with possible small laceration. No associated calvarial abnormality. CT - cervical spine: Radiologist's Impression: PROCEDURE: CT CERVICAL SPINE WO CON INDICATIONS: Unwitnessed fall without injury TECHNIQUE: Noncontrast 3 mm thick sections acquired from the skull base to the T4 level. Sagittal and coronal reformats were then constructed. For radiation dose reduction, the following was used: automated exposure control, adjustment of mA and/or kV according to patient size. COMPARISON: None. FINDINGS: Image quality: Diagnostic. Bones: No fractures or dislocations. Visualized superior ribs are intact. Soft tissues: Prevertebral soft tissues are normal in thickness. No paravertebral hematomas. No apical pneumothoraces. Heterogeneous appearance of the right thyroid gland with probable individual measuring up to 2.0 cm. IMPRESSION: No displaced fracture or traumatic subluxation. Multiple right thyroid gland nodules measuring up to 2.0 cm. Recommend further evaluation with nonemergent thyroid ultrasound. Extremity x-ray #1: Radiologist's Impression: PROCEDURE: XR ELBOW LT MIN 3V INDICATIONS: fall/pain TECHNIQUE: 3 views of the elbow were acquired. COMPARISON: [facility] ([place]), CR, XR ELBOW LT MIN 3V, 04/07/2023, 9:26. FINDINGS: Bones: No fractures or dislocations. No suspicious bony lesions. Soft tissues: No elbow joint effusion. No suspicious soft tissue calcifications. IMPRESSION: No acute bony abnormality or significant joint effusion. ECG Data Attestation: I personally reviewed and interpreted this ECG as follows: Interpretation: Sinus bradycardia rate 57 Normal [place] Normal QRS LVH No ST T wave changes MDM Narrative Medical decision making narrative: Patient and family were informed of the incidental finding of the thyroid nodule. The rest of the imaging studies here in the ER are unremarkable. The skin wounds were closed as described above. Patient not on anticoagulation. No other injuries found on the exam nor reported by the patient. Will discharge home with care instructions and return precautions. They expressed understanding and agreement with plan. Discharge Plan Departure Patient Disposition: Home Clinical Impression: Laceration of scalp, Thyroid nodule, Elbow laceration, Fall Instructions: How to Prevent Falls Activity Restrictions/Additional Instructions: The mahsa that were placed in your scalp in the stitches placed in your left elbow will need to be removed in approximately 10 days. This can be done by your primary doctor with the walk-in clinic. Until then you can shower like normal. You can use soap and water and topical antibiotic ointment. Return to the emergency department for new symptoms. Continue to take all of your medications as directed. Prescriptions: No Action B.ANI/L.ACI/L.DUC/L.PLAN/L.ANNETTE (Probiotic Formula Capsule) 1 cap PO QDAY Qty: 0 CA PANTOTHENATE/FOLIC ACID/VIT (MULTIVITAMIN) 2 tab PO QDAY Qty: 0 aspirin 81 mg tablet,delayed release (DR/EC) 81 mg PO QDAY Qty: 0 Hold Instructions: low platelets/patient concern [CALCIUM PLUS D ] 1,200 mg capsule 1,200 mg PO QDAY Qty: 0 venlafaxine 37.5 mg tablet See Rx Instructions .ROUTE .COMPLEX Qty: 90 1RF Dose Instruction: TAKE ONE TABLET BY MOUTH EVERY DAY Rx Instructions: TAKE ONE TABLET BY MOUTH EVERY DAY chlorthalidone 25 mg tablet 50 mg PO QAM Qty: 180 1RF acyclovir 400 mg tablet 400 mg PO BID Qty: 180 1RF atenolol 25 mg tablet 25 mg PO BID Qty: 60 3RF potassium chloride 10 mEq capsule, extended release 10 meq PO .COMPLEX Qty: 30 1RF Rx Instructions: 10 mEq orally ; 2 tabs po BID for 7 days, then 1 tab po QDAY; diltiazem HCl 240 mg capsule,ext.rel 24h degradable 240 mg PO QAM Qty: 90 0RF Claritin 10 mg tablet,chewable 10 mg PO DAILY Qty: 30 0RF Referrals: Tierney Houser PA-C [Primary Care Provider] - Stand Alone Forms: Patient Portal/API
[2023-10-15 01:00] VITALS: PULSE 70; O2SAT 99
[2023-10-15] MEDS: BACITRACIN OINT 0.9 GM PCKT 1 APPLIC TOP (01:14)
== END 2023-10-15 01:37 | disposition home or self-care (01) ==
PROVIDERS: Emergency Provider Emergency Medicine; PCP Physician Assistant
DX: S01.01XA Laceration without foreign body of scalp, initial encounter (principal); S51.012A Laceration without foreign body of left elbow, initial encounter; R00.1 Bradycardia, unspecified; E04.1 Nontoxic single thyroid nodule; W19.XXXA Unspecified fall, initial encounter
CPT/HCPCS: 12002; 36415; 70450; 72125; 73080; 80053; 83690; 85025; 93005; 93010; 99283; 99284

== ENCOUNTER → 2023-11-16 11:01 | Outpatient (CLI) | payer MEDICARE, OTHER, SELFPAY ==
[2023-11-16 21:11] LABS: BUN Creatinine Ratio 24.3 (6-22); Blood Urea Nitrogen 25 mg/dL (7-17); Calcium 9.9 mg/dL (8.4-10.2); Chloride 101 mmol/L (98-107); Estimated Glomerular Filt Rate 54 mL/min (>60); Glucose 141 mg/dL (80-110); HEMOLYSIS < 15 (0-50); Potassium 3.3 mmol/L (3.4-5.1); Sodium 139 mmol/L (137-145)
[2023-11-16 21:43] LABS: Carbon Dioxide 38 mmol/L (22-32)
== END ==
PROVIDERS: PCP Family Medicine; Referring Provider Family Medicine; Visit Provider Family Medicine
DX: E87.6 Hypokalemia (principal)
CPT/HCPCS: 80048

== ENCOUNTER → 2024-01-06 10:37 | Outpatient (CLI) | payer MEDICARE, OTHER, SELFPAY ==
[2024-01-06 20:48] LABS: BUN Creatinine Ratio 25.3 (6-22); Blood Urea Nitrogen 23 mg/dL (7-17); Calcium 9.8 mg/dL (8.4-10.2); Carbon Dioxide 35 mmol/L (22-32); Chloride 98 mmol/L (98-107); Estimated Glomerular Filt Rate > 60 mL/min (>60); Glucose 110 mg/dL (80-110); HEMOLYSIS 40 (0-50); Sodium 138 mmol/L (137-145)
[2024-01-06 20:59] LABS: Hemoglobin A1C% w Est Avg Glu 5.4 % (4.0-6.0)
== END ==
PROVIDERS: PCP Family Medicine; Visit Provider Family Medicine
DX: R73.9 Hyperglycemia, unspecified (principal); N18.30 Chronic kidney disease, stage 3 unspecified; E87.6 Hypokalemia; I12.9 Hypertensive chronic kidney disease with stage 1 through stage 4 chronic kidney disease, or unspecified chronic kidney disease
CPT/HCPCS: 80048; 83036

== ENCOUNTER → 2024-03-06 10:26 | Outpatient (CLI) | payer MEDICARE, OTHER, SELFPAY ==
[2024-03-06 19:07] LABS: BUN Creatinine Ratio 23.4 (6-22); Blood Urea Nitrogen 22 mg/dL (7-17); Carbon Dioxide 39 mmol/L (22-32); Chloride 96 mmol/L (98-107); Estimated Glomerular Filt Rate > 60 mL/min (>60); Glucose 93 mg/dL (80-110); HEMOLYSIS 22 (0-50); Magnesium 1.7 mg/dL (1.6-2.3); Potassium 3.2 mmol/L (3.4-5.1); Sodium 137 mmol/L (137-145)
== END ==
PROVIDERS: PCP Family Medicine; Referring Provider Family Medicine; Visit Provider Family Medicine
DX: E87.6 Hypokalemia (principal); Z79.899 Other long term (current) drug therapy; I10 Essential (primary) hypertension; F03.90 Unspecified dementia, unspecified severity, without behavioral disturbance, psychotic disturbance, mood disturbance, and anxiety; R73.9 Hyperglycemia, unspecified; N18.30 Chronic kidney disease, stage 3 unspecified
CPT/HCPCS: 80048; 83735

== ENCOUNTER → 2024-04-10 11:04 | Outpatient (CLI) | payer MEDICARE, OTHER, SELFPAY ==
[2024-04-10 19:04] LABS: Add Manual Diff / Slide Review NO; Basophils Absolute Auto 100 /uL (0-100); Basophils Percent Auto 0.7 % (0-2); Eosinophils Absolute Auto 500 /uL (0-450); Hematocrit 43.4 % (36-46); Hemoglobin 14.6 g/dL (12.0-16.0); Lymphocytes Absolute Auto 1200 /uL (1100-4500); Lymphocytes Percent Auto 15.7 % (25-40); Mean Corpuscular HGB Conc 33.6 % (30-36); Mean Corpuscular Hemoglobin 28.7 PG (26-34); Mean Corpuscular Volume 85.6 fL (80-100); Monocytes Absolute Auto 800 /uL (0-900); Monocytes Percent Auto 10.5 % (3-14); Neutrophils Absolute Auto 4900 /uL (1500-7000); Neutrophils Percent Auto 66.1 % (50-75); Platelet Count 295 X10^3/uL (150-400); Red Blood Cell Count 5.07 X10^6/uL (4.0-5.2); Red Cell Distribution Width 13.4 % (11.6-14.8); White Blood Cell Count 7.3 X10^3/uL (4.5-11.0)
[2024-04-10 19:09] LABS: BUN Creatinine Ratio 18.1 (6-22); Blood Urea Nitrogen 21 mg/dL (7-17); C-Reactive Protein Quant < 0.5 mg/dL (<1.0); Calcium 10.4 mg/dL (8.4-10.2); Carbon Dioxide 33 mmol/L (22-32); Chloride 100 mmol/L (98-107); Estimated Glomerular Filt Rate 47 mL/min (>60); Glucose 101 mg/dL (80-110); HEMOLYSIS < 15 (0-50); Potassium 3.4 mmol/L (3.4-5.1); Sodium 139 mmol/L (137-145)
[2024-04-10 20:16] LABS: Erythrocyte Sedimentation Rate 17 MM/HR (0-20)
[2024-04-12 21:40] LABS: Free Kappa Lt Chains, Serum 22.9 mg/L (3.3-19.4); Free Lambda Lt Chains,Serum 20.4 mg/L (5.7-26.3)
== END ==
PROVIDERS: PCP Family Medicine; Visit Provider Family Medicine
DX: Z01.812 Encounter for preprocedural laboratory examination (principal); M54.16 Radiculopathy, lumbar region; N18.30 Chronic kidney disease, stage 3 unspecified; E87.6 Hypokalemia; I12.9 Hypertensive chronic kidney disease with stage 1 through stage 4 chronic kidney disease, or unspecified chronic kidney disease
CPT/HCPCS: 80048; 83883; 84155; 84165; 85025; 85651; 86140

== ENCOUNTER → 2024-05-30 11:31 | Outpatient (CLI) | payer MEDICARE, OTHER, SELFPAY ==
[2024-05-30 19:38] LABS: Alanine Aminotransferase 23 IU/L (<35); Albumin 3.8 g/dL (3.5-5.0); Albumin Globulin Ratio 1.5 (1.0-2.8); Alkaline Phosphatase 73 U/L (38-126); Aspartate Aminotransferase 32 IU/L (14-36); BUN Creatinine Ratio 18.8 (6-22); Bilirubin Total 0.4 mg/dL (0.2-1.3); Blood Urea Nitrogen 19 mg/dL (7-17); Calcium 10.1 mg/dL (8.4-10.2); Carbon Dioxide 38 mmol/L (22-32); Chloride 96 mmol/L (98-107); Estimated Glomerular Filt Rate 55 mL/min (>60); Globulin 2.6 g/dL (1.7-4.1); Glucose 125 mg/dL (80-110); HEMOLYSIS 16 (0-50); Potassium 3.3 mmol/L (3.4-5.1); Sodium 139 mmol/L (137-145); Total Protein 6.4 g/dL (6.3-8.2)
[2024-06-01 09:09] LABS: Calcium 10.1 mg/dL (8.7-10.3); Parathyroid Hormone, Intact 32 pg/mL (15-65)
[2024-06-02 03:36] LABS: Free Kappa Lt Chain,UR 5.12 mg/L (1.17-86.46); Free Lambda Lt Chain,UR 0.99 mg/L (0.27-15.21); URINE Kappa/Lambda Ratio 5.17 (1.83-14.26)
[2024-06-02 14:08] LABS: Albumin 3.1 g/dL (2.9-4.4); Alpha-1-Globulin 0.3 g/dL (0.0-0.4); Alpha-2-Globulin 0.8 g/dL (0.4-1.0); Gamma Globulin 0.9 g/dL (0.4-1.8); Globulin Total 3.1 g/dL (2.2-3.9); Immunoglobulin A, Serum 310 mg/dL (64-422); Immunoglobulin G,Serum 974 mg/dL (586-1602); Immunoglobulin M, Serum 26 mg/dL (26-217); Protein, Total 6.2 g/dL (6.0-8.5)
== END ==
PROVIDERS: PCP Family Medicine; Visit Provider Family Medicine
DX: E83.52 Hypercalcemia (principal); R77.9 Abnormality of plasma protein, unspecified
CPT/HCPCS: 80053; 82306; 82310; 82784; 83883; 83970; 84155; 84165; 86334

== ENCOUNTER → 2024-08-18 10:22 | Outpatient (CLI) | payer MEDICARE, OTHER, SELFPAY ==
[2024-08-18 19:23] LABS: Alanine Aminotransferase 18 IU/L (<35); Albumin 3.4 g/dL (3.5-5.0); Albumin Globulin Ratio 1.3 (1.0-2.8); Alkaline Phosphatase 69 U/L (38-126); Aspartate Aminotransferase 27 IU/L (14-36); BUN Creatinine Ratio 24.5 (6-22); Bilirubin Total 0.5 mg/dL (0.2-1.3); Blood Urea Nitrogen 25 mg/dL (7-17); Calcium 9.7 mg/dL (8.4-10.2); Carbon Dioxide 36 mmol/L (22-32); Chloride 101 mmol/L (98-107); Estimated Glomerular Filt Rate 55 mL/min (>60); Globulin 2.6 g/dL (1.7-4.1); Glucose 108 mg/dL (80-110); HEMOLYSIS < 15 (0-50); Potassium 3.8 mmol/L (3.4-5.1); Sodium 141 mmol/L (137-145)
[2024-08-18 19:24] LABS: Blood Urea Nitrogen 25 mg/dL (7-17); Calcium 9.6 mg/dL (8.4-10.2); Carbon Dioxide 36 mmol/L (22-32); Chloride 101 mmol/L (98-107); Estimated Glomerular Filt Rate 56 mL/min (>60); Glucose 106 mg/dL (80-110); HEMOLYSIS < 15 (0-50); Potassium 3.8 mmol/L (3.4-5.1); Sodium 140 mmol/L (137-145)
[2024-08-21 13:12] LABS: Free Kappa Lt Chains, Serum 27.2 mg/L (3.3-19.4); Free Lambda Lt Chains,Serum 24.2 mg/L (5.7-26.3)
== END ==
PROVIDERS: PCP Family Medicine; Referring Provider Physician Assistant Medical; Visit Provider Physician Assistant Medical
DX: R60.9 Edema, unspecified (principal); N18.30 Chronic kidney disease, stage 3 unspecified; F03.93 Unspecified dementia, unspecified severity, with mood disturbance; R77.9 Abnormality of plasma protein, unspecified; E87.6 Hypokalemia; F41.9 Anxiety disorder, unspecified; M54.16 Radiculopathy, lumbar region; M85.80 Other specified disorders of bone density and structure, unspecified site; I12.9 Hypertensive chronic kidney disease with stage 1 through stage 4 chronic kidney disease, or unspecified chronic kidney disease
CPT/HCPCS: 80048; 80053; 83883; 84155; 84165

== ENCOUNTER → 2025-01-29 12:34 | Outpatient (CLI) | payer MEDICARE, OTHER, SELFPAY | PROVIDERS: PCP Family Medicine; Visit Provider Family Medicine | DX: R32 Unspecified urinary incontinence (principal); R39.89 Other symptoms and signs involving the genitourinary system | CPT/HCPCS: 81002; 87086 ==